=== PATIENT | male | born 1950 | race Caucasian/White ===

== ENCOUNTER → 2018-01-29 07:47 | Outpatient (CLI) | payer BC, MEDICARE, SELFPAY ==
[2018-01-29 09:18] LABS: Add Manual Diff / Slide Review NO; Basophils Percent Auto 0.6 % (0-2); Eosinophils Percent Auto 3.6 % (2-4); Hematocrit 41.8 % (41-53); Lymphocytes Percent Auto 25.8 % (25-40); Mean Corpuscular HGB Conc 33.4 % (30-36); Mean Corpuscular Hemoglobin 28.4 PG (26-34); Mean Corpuscular Volume 84.9 fL (80-100); Monocytes Percent Auto 7.8 % (3-14); Neutrophils Absolute Auto 4000 /uL (3000-5900); Neutrophils Percent Auto 62.2 % (50-75); Platelet Count 199 X10^3/uL (150-400); Red Blood Cell Count 4.92 X10^6/uL (4.5-5.9); Red Cell Distribution Width 13.7 % (11.6-14.8); White Blood Cell Count 6.4 X10^3/uL (4.5-11.0)
[2018-01-29 09:36] LABS: Alanine Aminotransferase 23 IU/L (21-72); Albumin 3.9 g/dL (3.5-5.0); Albumin Globulin Ratio 1.3 (1.0-2.8); Alkaline Phosphatase 49 U/L (38-126); Aspartate Aminotransferase 21 IU/L (17-59); BUN Creatinine Ratio 23.8 (6-22); Bilirubin Total 0.5 mg/dL (0.2-1.3); Blood Urea Nitrogen 19 mg/dL (9-20); Calcium 8.9 mg/dL (8.4-10.2); Carbon Dioxide 28 mmol/L (22-32); Chloride 106 mmol/L (98-107); Cholesterol 155 mg/dL (140-199); Estimated Glomerular Filt Rate > 60.0 mL/min (>60); Globulin 2.9 g/dL (1.7-4.1); Glucose 86 mg/dL (80-110); HDL Cholesterol 44 mg/dL (40-60); HEMOLYSIS 21 (0-50); LDL Cholesterol Calculated 101 mg/dL (<100); Potassium 4.2 mmol/L (3.4-5.1); Sodium 141 mmol/L (137-145); Total Protein 6.8 g/dL (6.3-8.2); Triglycerides 52 mg/dL (35-150)
== END ==
PROVIDERS: PCP Family Medicine; Visit Provider Family Medicine
DX: E78.00 Pure hypercholesterolemia, unspecified (principal)
CPT/HCPCS: 36415; 80053; 80061; 85025

== ENCOUNTER → 2018-02-05 07:49 | Outpatient (CLI) | payer BC, MEDICARE, SELFPAY ==
[2018-02-05 09:10] LABS: Add Manual Diff / Slide Review NO; Basophils Percent Auto 0.7 % (0-2); Eosinophils Percent Auto 3.2 % (2-4); Hematocrit 41.8 % (41-53); Hemoglobin 14.1 g/dL (13.5-17.5); Lymphocytes Percent Auto 25.9 % (25-40); Mean Corpuscular HGB Conc 33.6 % (30-36); Mean Corpuscular Hemoglobin 28.5 PG (26-34); Mean Corpuscular Volume 84.8 fL (80-100); Monocytes Percent Auto 9.4 % (3-14); Neutrophils Absolute Auto 4000 /uL (3000-5900); Neutrophils Percent Auto 60.8 % (50-75); Platelet Count 174 X10^3/uL (150-400); Red Blood Cell Count 4.93 X10^6/uL (4.5-5.9); Red Cell Distribution Width 13.3 % (11.6-14.8); White Blood Cell Count 6.6 X10^3/uL (4.5-11.0)
[2018-02-05 09:24] LABS: Alanine Aminotransferase 25 IU/L (21-72); Albumin Globulin Ratio 1.4 (1.0-2.8); Alkaline Phosphatase 55 U/L (38-126); Aspartate Aminotransferase 22 IU/L (17-59); Bilirubin Total 0.5 mg/dL (0.2-1.3); Blood Urea Nitrogen 16 mg/dL (9-20); Calcium 9.4 mg/dL (8.4-10.2); Carbon Dioxide 31 mmol/L (22-32); Chloride 101 mmol/L (98-107); Cholesterol 165 mg/dL (140-199); Estimated Glomerular Filt Rate > 60.0 mL/min (>60); Globulin 2.8 g/dL (1.7-4.1); Glucose 86 mg/dL (80-110); HDL Cholesterol 55 mg/dL (40-60); HEMOLYSIS < 15 (0-50); LDL Cholesterol Calculated 100 mg/dL (<100); Potassium 4.7 mmol/L (3.4-5.1); Total Protein 6.8 g/dL (6.3-8.2); Triglycerides 52 mg/dL (35-150)
[2018-02-07 10:46] LABS: Sodium 140 mmol/L (137-145)
== END ==
PROVIDERS: PCP Family Medicine; Visit Provider Family Medicine
DX: E78.00 Pure hypercholesterolemia, unspecified (principal); R97.20 Elevated prostate specific antigen [PSA]; R68.82 Decreased libido
CPT/HCPCS: 36415; 80053; 80061; 84153; 84403; 85025

== ENCOUNTER → 2019-11-03 07:10 | Outpatient (CLI) | payer MEDICARE, SELFPAY ==
[2019-11-03 08:42] LABS: BUN Creatinine Ratio 22.6 (6-22); Blood Urea Nitrogen 21 mg/dL (9-20); Calcium 9.4 mg/dL (8.4-10.2); Carbon Dioxide 28 mmol/L (22-32); Chloride 105 mmol/L (98-107); Estimated Glomerular Filt Rate > 60.0 mL/min (>60); Glucose 94 mg/dL (80-110); HEMOLYSIS < 15 (0-50); Potassium 4.5 mmol/L (3.4-5.1); Sodium 140 mmol/L (137-145)
[2019-11-03 09:11] LABS: Prostate Specific Antigen Scrn 4.27 ng/mL (0.1-4.0)
== END ==
PROVIDERS: PCP Student in an Organized Health Care Education/Training Program; Referring Provider Student in an Organized Health Care Education/Training Program; Visit Provider Student in an Organized Health Care Education/Training Program
DX: Z12.5 Encounter for screening for malignant neoplasm of prostate (principal); Z79.1 Long term (current) use of non-steroidal anti-inflammatories (NSAID)
CPT/HCPCS: 36415; 80048; G0103

== ENCOUNTER → 2021-06-11 07:24 | Outpatient (CLI) | payer MEDICARE, SELFPAY ==
[2021-06-11 09:10] LABS: BUN Creatinine Ratio 24.7 (6-22); Blood Urea Nitrogen 20 mg/dL (9-20); Calcium 9.1 mg/dL (8.4-10.2); Carbon Dioxide 30 mmol/L (22-32); Chloride 104 mmol/L (98-107); Cholesterol 187 mg/dL (140-199); Estimated Glomerular Filt Rate > 60.0 mL/min (>60); Glucose 89 mg/dL (80-110); HDL Cholesterol 45 mg/dL (40-60); HEMOLYSIS < 15 (0-50); LDL Cholesterol Calculated 128 mg/dL (<100); Potassium 4.5 mmol/L (3.4-5.1); Sodium 139 mmol/L (137-145); Triglycerides 70 mg/dL (35-150)
[2021-06-11 09:40] LABS: Prostate Specific Antigen 4.11 ng/mL (0.10-4.00)
[2021-06-11 13:00] LABS: COVID19 -Nasal RAPID Negative (Negative)
== END ==
PROVIDERS: Surgery; PCP Student in an Organized Health Care Education/Training Program; Referring Provider Student in an Organized Health Care Education/Training Program; Visit Provider Student in an Organized Health Care Education/Training Program
DX: E78.00 Pure hypercholesterolemia, unspecified (principal); R97.20 Elevated prostate specific antigen [PSA]; S32.009A Unspecified fracture of unspecified lumbar vertebra, initial encounter for closed fracture; Z01.812 Encounter for preprocedural laboratory examination; Z20.822 Contact with and (suspected) exposure to COVID-19
CPT/HCPCS: 36415; 80048; 80061; 84153; 87635; C9803

== ENCOUNTER 2021-06-12 08:27 | Day surgery (SDC) | payer MEDICARE, SELFPAY ==
[2021-06-12 08:45] VITALS: BP 131/74; PULSE 81; RESP 16; TEMP 36.4; O2SAT 98; BMI 27.3
[2021-06-12] MEDS: LACTATED RINGERS 1,000 ML 42 ML IV (09:09)
--- NOTE | 2021-06-12 09:33 | PM.HP.1 ---
History of Present Illness History of Present Illness Date Patient Seen: 06/12/21 Time Patient Seen: 09:33 Chief complaint: SCREENING COLONOSCOPY Narrative: Jaxon is a 70-year-old man who is due for a screening colonoscopy. He he has had a colonoscopy in the past he thinks it was at least 10 years ago. He reports that he is otherwise healthy. Patient History Medical History (Updated 06/12/21 @ 09:34 by Robert Viera MD) BPH (benign prostatic hyperplasia) Carpal tunnel syndrome Chronic low back pain Closed fracture of lumbar vertebra (10/18/15) Colon polyps Elevated PSA Heart murmur (06/29/16) Hx of fracture (2008) Hyperlipemia Hypertension Pure hypercholesterolemia (10/18/15) Surgical History Hx of hernia repair Family & Social History Family History Brother Prostate cancer Father No problems noted. Mother No problems noted. Social History: household members spouse Tobacco & Substance use: Smoking Status Never smoker alcohol intake never Substance Use Type does not use Meds Home Medications and Allergies Home Medications Medication Instructions Recorded Confirmed Type ketoconazole 2 %-hydrocortisone 1 applictn TOP BID #30 gram 09/01/19 06/12/21 Rx 2.5 % topical cream atorvastatin 40 mg tablet 40 mg PO BEDTIME #90 tab 05/08/21 06/12/21 Rx aspirin 81 mg PO DAILY 06/12/21 06/12/21 History Allergies Allergy/AdvReac Type Severity Reaction Status Date / Time No Known Drug Allergies Allergy Verified 06/12/21 08:05 Exam Vital Signs (past 8 hours): - 06/12/21 08:45 Temperature 97.6 F Pulse Rate 81 Respiratory Rate 16 Blood Pressure 131/74 Pulse Oximetry 98 Oxygen Delivery Method Room Air Const General: healthy appearing and comfortable Eyes General: appearance normal, both eyes and all related structures Resp Effort & Inspection: normal respiratory effort Assessment & Plan Assessment and plan (1) Colon cancer screening: Status: Acute Plan We reviewed the risks benefits of colonoscopy. He would like to proceed. Time Spent With Patient Critical Care time: I spent a total of [] minutes of critical care time on this patient's care today; this time is exclusive of procedural time.
--- NOTE | 2021-06-12 09:39 | PM.PREOP ---
Pre-operative Note COVID-19 COVID-19 status: Negative Result date/Date tested (Pos, Neg/Pending): 06/11/21 Interval Note History & Physical reviewed/Exam performed by Physician: Yes Changes to H&P: No ASA Class (for procedural sedation): II
[2021-06-12] MEDS: MIDAZOLAM 5 MG/5 ML VIAL IV (09:59)
[2021-06-12] MEDS: fentaNYL 250 MCG/5 ML INJ IV (10:05)
--- NOTE | 2021-06-12 10:28 | PM.OP.COLON ---
Operative Date/Time/Diagnoses Date of procedure: 06/12/21 Time of procedure: 10:29 Pre-op diagnosis: Colon cancer screening Post-op diagnosis: same Procedure & Clinicians Study performed: Colonoscopy Same procedure as scheduled: Yes Indications: Colon cancer screening Surgeon: Robert Viera Procedure Notes SCOAP/Timeout: Yes Procedure in detail: Procedure: The patient was brought to the endoscopy suite, placed in left lateral decubitus position. The patient was connected to monitoring devices. A time-out was performed. Sedation was administered. Once the patient was adequately sedated, a digital rectal exam was performed. There was a moderately enlarged prostate. The scope was then inserted and advanced to the cecum where the appendiceal orifice was identified and photographed. The scope was then slowly withdrawn over greater than 6 minutes. Mucosa was thoroughly inspected. There were some scattered diverticula in the sigmoid colon. No polyps were found. The scope was retroflexed in the rectum. No abnormalities noted. The scope was straightened and removed. The patient was awakened and brought to recovery. Versed: 7 mg Fentanyl: 150 mcg EBL: 0 Findings: Scattered sigmoid diverticulosis Scope withdrawal time: 18 Sedation minutes: 47 Findings: divertiulosis Post-procedure Recommendations: Colonoscopy in 10 years and High fiber diet
[2021-06-12 10:30] VITALS: BP 109/56; PULSE 72; RESP 10; TEMP 36.2; O2SAT 98
[2021-06-12 10:35] VITALS: BP 115/60; PULSE 57; RESP 12; O2SAT 98
[2021-06-12 10:40] VITALS: BP 100/65; PULSE 71; RESP 16; O2SAT 99
[2021-06-12 10:45] VITALS: BP 107/63; PULSE 71; RESP 16; O2SAT 98
[2021-06-12 10:50] VITALS: BP 115/70; PULSE 59; RESP 16; TEMP 36.6; O2SAT 97
== END 2021-06-12 11:35 | disposition home or self-care (01) ==
PROVIDERS: PCP Student in an Organized Health Care Education/Training Program; Referring Provider Surgery; Visit Provider Surgery
PROC: 0DJD8ZZ Inspection of Lower Intestinal Tract, Via Natural or Artificial Opening Endoscopic (ICD-10-PCS; CPT 45378; principal; 2021-06-12 09:15)
DX: Z12.11 Encounter for screening for malignant neoplasm of colon (principal); K57.30 Diverticulosis of large intestine without perforation or abscess without bleeding; I10 Essential (primary) hypertension; E78.5 Hyperlipidemia, unspecified; E78.00 Pure hypercholesterolemia, unspecified
CPT/HCPCS: G0121; 93005; 99152; 99153; J2250; J3010

== ENCOUNTER → 2021-06-19 10:17 | Outpatient (CLI) | payer MEDICARE, SELFPAY ==
[2021-06-19 10:57] LABS: Add Manual Diff / Slide Review NO; Basophils Absolute Auto 0 /uL (0-100); Basophils Percent Auto 0.6 % (0-2); Eosinophils Absolute Auto 100 /uL (0-450); Eosinophils Percent Auto 2.1 % (2-4); Hematocrit 43.4 % (41-53); Hemoglobin 14.5 g/dL (13.5-17.5); Lymphocytes Absolute Auto 1500 /uL (1100-4500); Lymphocytes Percent Auto 24.7 % (25-40); Mean Corpuscular HGB Conc 33.4 % (30-36); Mean Corpuscular Hemoglobin 28.6 PG (26-34); Mean Corpuscular Volume 85.7 fL (80-100); Monocytes Absolute Auto 500 /uL (0-900); Monocytes Percent Auto 8.4 % (3-14); Neutrophils Absolute Auto 3900 /uL (1500-7000); Neutrophils Percent Auto 64.2 % (50-75); Platelet Count 199 X10^3/uL (150-400); Red Blood Cell Count 5.07 X10^6/uL (4.5-5.9); Red Cell Distribution Width 13.5 % (11.6-14.8); White Blood Cell Count 6.1 X10^3/uL (4.5-11.0)
[2021-06-19 11:21] LABS: Vitamin D 25 Hydroxy (D3) 40.6 ng/mL (30.0-100.0)
[2021-06-19 11:34] LABS: TSH w/ Reflex to FT4 2.22 uIU/mL (0.47-4.68)
[2021-06-19 12:00] LABS: Vitamin B12 496 pg/mL (239-931)
== END ==
PROVIDERS: PCP Student in an Organized Health Care Education/Training Program; Referring Provider Student in an Organized Health Care Education/Training Program; Visit Provider Student in an Organized Health Care Education/Training Program
DX: R41.3 Other amnesia (principal)
CPT/HCPCS: 36415; 82306; 82607; 84443; 85025

== ENCOUNTER 2021-09-17 10:30 | Outpatient (RCR) | payer MEDICARE, SELFPAY ==
--- NOTE | 2021-09-04 16:41 | ST.OPIE ---
Visit Care Team Role Provider Type Jaxon Mcknight MD Attending Provider Physician Family Provider Primary Care Provider Referring Provider Specialty: Internal Medicine Address: [address] [place] [address], [address], [address] Email: [email or web address] Speech-Language Pathology Initial Evaluation MANAGER SPECIAL EVENTS Adult Cognitive Linguistic Eval Start: 09/04/21 12:43 Freq: Status: Active Protocol: Document 08/29/21 12:44 LNK (Rec: 09/04/21 13:32 LNK [id number]) Adult Cognitive Linguistic Evaluation Session Time Visit Start Time 13:30 Visit Stop Time 14:30 Total Visit Minutes 60 Visit Information Visit Number 1 Plan of Care Dates 08/29/21-11/26/21 Setting Assessment Location Outpatient Care Visit Type Note Type Initial evaluation Next Note Type Next Note Type Treatment Note Patient Information Identification Type Name,Date of Medical History pt was seen for cognition assessment at the referral Dr. Arenas. Pt reported that he was a heavy drinker and had quit drinking 10 years ago. Review of records indicated a history of head injury when he was in his 20s. Pt described a gradual onset of frustrating difficulty remembering details of his day. Symptoms became noticeable about 4-6 months ago with no clear inciting event, environmental change, life stresses, or coincident medical problem. Pt reported difficulty recalling /tracking details of active tasks or recalling locations of objects. His reported that she has noticed pt not remembering appointments, where his phone/keys are and what chore he was working on. His also noted that in the evenings, pt is easy to get angry and has a short temper. Pt's and their kids have become concerned about pt's memory. 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 Assessment Oral Motor Examination Completed No: Observation indicated structures and function to be WNL Informal Assessment Receptive Language Normal Yes: as observed during assessment Receptive Language Impairment(s) Following 3-step commands Expressive Language Normal Yes: as observed during assessment Speech Normal as observed during assessment Formal Assessment Standardized Test/Screener Type Cognitive Linguistic Quick Test (CLQT) Results Pt scored a 16/30 on the SLUMS demonstrating challenges with memory, mental math and executive functioning. The CLQT (Cognitive Linguistic Quick Test) was then administered. The CLQT is an assessment tool that measures performance across 5 cognitive domains: Attention, Memory, Executive Functions, Language, Visuospatial Skills and a Clock Drawing. Ten domain subtests collectively contribute to determine a pt's Domain and Composite Rating. The overall composite ratings indicated the pt's Visuospatial Skills are WNL. For the following domains, the pt's results indicated mild cognitive decline: Attention, Executive Functions, Language and Clock drawing. With the Memory domain, the pt scored in the Moderate Cognitive decline range. These results support the information provided by the pt and his . With respect the the individual subtests, the patient scored below criteria on the following: Clock Drawing, Story Retell, Design Memory and Design Generation. Findings/Results Language Function Mildly impaired Cognitive Function Mild-moderately impaired Findings The pt presented with mild- moderate cognitive decline. Pt presents with moderate decline in memory skills with mild decline in attention/ focus, excecutive functions, language and the clock drawing . The subtests below criteria, contributing to the overall results were examined. The skills that are a difficult for the pt are memory (short term, working memory), sequencing, logic conclusion, mental flexibility,and encoding non-linguistic information (executive functions). The impact of the decline in these skills and daily functioning is significantly. Recommend referral to neurologist for further assessment. Cognitive therapy is recommended with MANAGER SPECIAL EVENTS. Cognitive Communication Deficits Self-awareness of Cognitive- Situational awareness ( Communication Deficits recognition of problem in context;in real time) Impact on Functioning Activity Limits/Particip.Rest. Mod: General Tasks and Demands Household Tasks Interpersonal Interactions Safety Risks Mild: Being Left Alone at Home Mod: Reacting to Emergency Managing Medication Prognosis Prognosis Good Based on Family support,Time since onset Plan of Care Speech-Language Treatment Yes Frequency weekly or every other week Patient/Caregiver Education Described results of evaluation,Patient expressed understanding of evaluation, Patient expressed agreement with goals and treatment plans ,Family/caregivers expressed understanding of evaluation, Family/caregivers expressed agreement with goals and treatment plan Short Term Goals Pt will be referred for neurological evaluation 1) Pt and family will set up Information Central,locating the primary place for all important information (i.e., appointments, special events, phone numbers, emergency contacts, etc.) the use of a large white board and labeld placec for phones, keys, etc. 2) Pt will report white board set up and use of reminders to go to the board for information 3) Pt will report implementing Go, Plan, Do worksheets for defining a goal/task and organizing the supplies and steps to completion. This will help reduce incomplete projects. Penitentiary Goals Pt will independently implement strategies and white board in order to aid in completing ADLS, per pt report .
--- NOTE | 2021-09-04 16:43 | ST.OPPOC ---
Addendum entered and electronically signed by Jaxon Mcknight MD 09/17/21 08:24: I have reviewed this Plan of Care and certify that the skilled therapy services above are required to meet the patient?s needs. Original Note: Addendum entered and electronically signed by Aftab Tarango 09/17/21 12:55: Sending to Dr. Mcknight Original Note: Physical, Occupational & Speech Therapy At [facility] Visit Care Team Role Provider Type Jaxon Mcknight MD Attending Provider Physician Family Provider Primary Care Provider Referring Provider Address: [address] [place] [address], [address], [address] Speech Pathology Plan of Care Plan of Care Dates 08/29/21-11/26/21 Language Function Mildly impaired Cognitive Function Mild-moderately impaired Findings The pt presented with mild-moderate cognitive decline. Pt presents with moderate decline in memory skills with mild decline in attention/ focus, excecutive functions, language and the clock drawing. The subtests below criteria, contributing to the overall results were examined. The skills that are a difficult for the pt are memory (short term, working memory), sequencing, logic conclusion, mental flexibility ,and encoding non-linguistic information ( executive functions). The impact of the decline in these skills and daily functioning is significantly. Recommend referral to neurologist for further assessment. Cognitive therapy is recommended with COMMUNITY MARKETING COORDINATOR. Short Term Goals Pt will be referred for neurological evaluation 1) Pt and family will set up Information Central,locating the primary place for all important information (i.e., appointments, special events, phone numbers, emergency contacts, etc.) the use of a large white board and labeled places for phones, keys, etc. 2) Pt will report white board set up and use of reminders to go to the board for information 3) Pt will report implementing Go, Plan, Do worksheets for defining a goal/task and organizing the supplies and steps to completion. This will help reduce incomplete projects. Assisted Goals Pt will independently implement strategies and white board in order to aid in completing ADLS, per pt report. Electronically Signed by: BRIANA Tarango 09/04/21 1643 Please Sign and Return: I have reviewed this Plan of Care and certify that the skilled therapy services above are required to meet the patient?s needs. Physician Signature Date Printed Name and Credentials Clinical Instructor Signature Printed Name and Credentials
--- NOTE | 2021-09-04 16:58 | ST.OPTN ---
Visit Care Team Role Provider Type Jaxon Mcknight MD Attending Provider Physician Family Provider Primary Care Provider Referring Provider Address: [address] [place] [address], [address], [place], [address] OPERATIONS ARCHITECT Treatment Note OPERATIONS ARCHITECT Treatment Note Start: 09/04/21 12:43 Freq: Status: Active Protocol: Document 09/04/21 16:47 LNK (Rec: 09/04/21 16:58 LNK [id number]) Speech Pathology Treatment Note Session Time Visit Start Time 14:30 Visit Stop Time 15:30 Total Visit Minutes 60 Visit Information Plan of Care Dates 06/28/22/-09/26/21 Setting Treatment Setting Outpatient Care Visit Type Note Type Treatment Note Next Note Type Next Note Type Treatment Note General Information General Information pt was seen for cognition assessment at the referral Dr. Arenas. Pt reported that he was a heavy drinker and had quit drinking 10 years ago. Review of records indicated a history of head injury when he was in his 20s. Pt described a gradual onset of frustrating difficulty remembering details of his day. Symptoms became noticeable about 4-6 months ago with no clear inciting event, environmental change, life stresses, or coincident medical problem. Pt reported difficulty recalling /tracking details of active tasks or recalling locations of objects. His reported that she has noticed pt not remembering appointments, where his phone/keys are and what chore he was working on. His also noted that in the evenings, pt is easy to get angry and has a short temper. Pt's and their kids have become concerned about pt's memory. Subjective Identification Type Name,Date of Others Present Family Chief Complaint(s) Cognitive Rehab Expectation/Goals: Patient Goals To carry out everyday ADLs using cognitive strategies to maintain skills Patient Knowledge/Awareness of OPERATIONS ARCHITECT Role Excellent in Treatment Objective Short Term Goals Pt will be referred for neurological evaluation 1) Pt and family will set up Information Central,locating the primary place for all important information (i.e., appointments, special events, phone numbers, emergency contacts, etc.) the use of a large white board and labeld placec for phones, keys, etc. 2) Pt will report white board set up and use of reminders to go to the board for information 3) Pt will report implementing Go, Plan, Do worksheets for defining a goal/task and organizing the supplies and steps to completion. This will help reduce incomplete projects. Detention Goals Pt will independently implement strategies and white board in order to aid in completing ADLS, per pt report . Treatment Activities Reviewed the results of the CLQT with detailed explanation of the results. Pt and were concerned and asked excellent questions. All questions answered to their satisfaction. Described recommendations. Introduce 2 strategies: Information Central and white board implementation. Described a place for everything and everything in its place. Labels, lists, phone assistance discussed with pt and . Recommended they start or restart using games, word puzzles, jig saw puzzles to exercise the brain. Pt an were enthusiastic and happy to have assignments to start. Assessment Patient Response to Treatment Excellent Rehab Potential Good Impairments Identified ADLs,Cognitive-Linguistic Skills,Memory - Short Term, Memory - Working,Problem Solving Reviewed with Patient Goals,Progress Being Made,Home Exercise Program Patient/Caregiver Understanding Excellent Plan Amount of Therapy Recommended 12 Months Frequency of Treatment Once a Week Length of Session 60 Minutes Therapeutic Contents Cognitive-Linguistic Training Provided Patient/Caregiver Instruction Home Exercise Program,Plan of Care,Questions/Concerns Suggested Referral Neurology
--- NOTE | 2021-09-23 17:14 | ST.OPTN ---
Visit Care Team Role Provider Type Jaxon Mcknight MD Attending Provider Physician Family Provider Primary Care Provider Referring Provider Address: [address] [place] [address], [address], [place], [address] HEALTH CARE SOCIAL WORKER Treatment Note HEALTH CARE SOCIAL WORKER Treatment Note Start: 09/04/21 12:43 Freq: Status: Active Protocol: Document 09/17/21 17:07 LNK (Rec: 09/23/21 17:14 LNK [id number]) Speech Pathology Treatment Note Session Time Visit Start Time 11:30 Visit Stop Time 12:30 Total Visit Minutes 60 Visit Information Visit Number 3 Plan of Care Dates 06/28/22/-09/26/21 Setting Treatment Setting Outpatient Care Visit Type Note Type Treatment Note Next Note Type Next Note Type Treatment Note General Information General Information pt was seen for cognition assessment at the referral Dr. Arenas. Pt reported that he was a heavy drinker and had quit drinking 10 years ago. Review of records indicated a history of head injury when he was in his 20s. Pt described a gradual onset of frustrating difficulty remembering details of his day. Symptoms became noticeable about 4-6 months ago with no clear inciting event, environmental change, life stressor, or coincident medical problem. Pt reported difficulty recalling /tracking details of active tasks or recalling locations of objects. His reported that she has noticed pt not remembering appointments, where his phone/keys are and what chore he was working on. His also noted that in the evenings, pt is easy to get angry and has a short temper. Pt's and their kids have become concerned about pt's memory. Subjective Identification Type Name,Date of Others Present Family Chief Complaint(s) Cognitive Rehab Expectation/Goals: Patient Goals To carry out everyday ADLs using cognitive strategies to maintain skills Patient Knowledge/Awareness of HEALTH CARE SOCIAL WORKER Role Excellent in Treatment Objective Short Term Goals Pt will be referred for neurological evaluation 1) Pt and family will set up Information Central,locating the primary place for all important information (i.e., appointments, special events, phone numbers, emergency contacts, etc.) the use of a large white board and labeld placec for phones, keys, etc. 2) Pt will report white board set up and use of reminders to go to the board for information 3) Pt will report implementing Go, Plan, Do worksheets for defining a goal/task and organizing the supplies and steps to completion. This will help reduce incomplete projects. Prison Goals Pt will independently implement strategies and white board in order to aid in completing ADLS, per pt report . Treatment Activities Pt''s reported tht they have set up Information Central and white board for appointments, daily chores list and phone numbers. His noted that she needs to purchase a bigger white board. They both reported that the information central is working well and they are using it frequently. Fewer losses of keys, phones, etc. Reinforced a place for everything and everything in its place. Labels, lists, phone assistance have also been started, per . Discussed with pt and . Using games , word puzzles, jig saw puzzles to exercise the brain continues to be discussed. Pt reported that he has difficulty being told what to do and he has been resisting coming to therapy. Pt and are anxious for their Dr. to refer to a neurologist for assessment, to find out what is diagnosis. Assessment Patient Response to Treatment Excellent Rehab Potential Good Impairments Identified ADLs,Cognitive-Linguistic Skills,Memory - Short Term, Memory - Working,Problem Solving Reviewed with Patient Goals,Progress Being Made,Home Exercise Program Patient/Caregiver Understanding Excellent Plan Amount of Therapy Recommended 12 Months Frequency of Treatment Once a Week Length of Session 60 Minutes Therapeutic Contents Cognitive-Linguistic Training Provided Patient/Caregiver Instruction Home Exercise Program,Plan of Care,Questions/Concerns Suggested Referral Neurology
--- NOTE | 2021-10-17 12:29 | ST.OPDS ---
Visit Care Team Role Provider Type Jaxon Mcknight MD Attending Provider Physician Family Provider Primary Care Provider Referring Provider Address: [address] [place] [address], [address], [place], [address] BEDSPREAD CUTTER Treatment Note BEDSPREAD CUTTER Treatment Note Start: 09/04/21 12:43 Freq: Status: Active Protocol: Document 10/17/21 12:16 LNK (Rec: 10/17/21 12:28 LNK [id number]) Speech Pathology Treatment Note Setting Treatment Setting Outpatient Care Visit Type Note Type Discharge Summary General Information Patient History pt was ssen for cognition assessment at the referral Dr. Arenas. Pt reprted that he was a heavy drinker and had quit drinking 10 years ago. Review of records indicated a history of head injury when he was in his 20s. Pt described a gradual onset of frustrating difficulty remembering details of his day. Symptoms became noticeable about 4-6 months ago with no clear inciting event, environmental change, life stressor, or coincident medical problem. Pt reported difficulty recalling /tracking details of active tasks or recalling locations of objects. His reported that she has noticed pt not remembering appointments, where his phone/keys are and what chore he was working on. His also noted that in the evenings, pt is easy to get angry and has a short temper. Pt's and their kids have become concerned about pt's memory. Subjective Chief Complaint(s) Cognitive Parent/Caretake Knowledge/Awareness of Excellent BEDSPREAD CUTTER Role in Treatment Objective Short Term Goals Pt will be referred for neurological evaluation 1) Pt and family will set up Information Central,locating the primary place for all important information (i.e., appointments, special events, phone numbers, emergency contacts, etc.) the use of a large white board and labeled place for phones, keys, etc. 2) Pt will report white board set up and use of reminders to go to the board for information 3) Pt will report implementing Go, Plan, Do worksheets for defining a goal/task and organizing the supplies and steps to completion. This will help reduce incomplete projects. Assessment Assessment of Improvement Pt's reported tht they have set up Information Central and white board for appointments, daily chores list and phone numbers. Pt has been refusing to go to therapy sessions and does not see a need. His suggested that they wait until the neurologist's evaluation and decide then if therapy is something to pursue Plan Amount of Therapy Recommended No Further Therapy Frequency of Treatment No Further Therapy Therapy Recommendations Discharge from Speech Therapy
== END 2021-10-20 14:11 ==
LOC: SP 10:30
PROVIDERS: Family Provider Student in an Organized Health Care Education/Training Program; PCP Student in an Organized Health Care Education/Training Program; Referring Provider Student in an Organized Health Care Education/Training Program; Visit Provider Student in an Organized Health Care Education/Training Program
DX: R41.3 Other amnesia (principal)
CPT/HCPCS: 96125; 97129; 97130

== ENCOUNTER → 2022-02-23 07:47 | Outpatient (CLI) | payer MEDICARE, SELFPAY ==
--- NOTE | 2022-02-23 | DI.MRI.S_ITS ---
PROCEDURE: MR HEAD/BRAIN WO/W CON INDICATIONS: Unspecified dementia wo behavioral disturbance TECHNIQUE: Noncontrast axial T1 spin echo, axial T2 fast spin echo, sagittal and axial FLAIR, coronal T2 fast spin echo, axial gradient echo, axial diffusion and ADC through the brain. After the administration of contrast, axial and coronal and sagittal T1 spin echo with fat saturation through the brain. COMPARISON: None. FINDINGS: Image quality: Excellent. CSF spaces: Basal cisterns are patent. No extra-axial fluid collections. Ventricles are normal in size and shape. Brain: No midline shift. No intracranial bleeds or masses. No abnormal intracranial enhancement. There is cerebral volume loss for age. There is periventricular white matter chronic small vessel ischemic change. The brainstem appears normal. Diffusion-weighted images demonstrate no acute ischemic insults. No chronic ischemic insults. Normal intravascular flow voids are present. Skull and face: Calvarial marrow is normal in signal. Orbits appear normal. Sinuses: Sinuses and mastoids appear clear. IMPRESSION: 1. Volume loss and small vessel ischemic disease. 2. No acute process. No recent infarct. Dictated by: Ángel Alford M.D. on 02/23/2022 at 9:22 Approved by: Ángel Alford M.D. on 02/23/2022 at 9:23
[2022-02-23 09:46] LABS: Add Manual Diff / Slide Review NO; Basophils Absolute Auto 0 /uL (0-100); Basophils Percent Auto 0.8 % (0-2); Eosinophils Absolute Auto 100 /uL (0-450); Eosinophils Percent Auto 2.4 % (2-4); Hematocrit 39.7 % (41-53); Hemoglobin 13.7 g/dL (13.5-17.5); Lymphocytes Absolute Auto 1200 /uL (1100-4500); Lymphocytes Percent Auto 20.3 % (25-40); Mean Corpuscular HGB Conc 34.4 % (30-36); Mean Corpuscular Hemoglobin 29.1 PG (26-34); Mean Corpuscular Volume 84.5 fL (80-100); Monocytes Absolute Auto 500 /uL (0-900); Monocytes Percent Auto 8.9 % (3-14); Neutrophils Absolute Auto 3900 /uL (1500-7000); Neutrophils Percent Auto 67.6 % (50-75); Platelet Count 180 X10^3/uL (150-400); Red Blood Cell Count 4.71 X10^6/uL (4.5-5.9); Red Cell Distribution Width 13.4 % (11.6-14.8); White Blood Cell Count 5.8 X10^3/uL (4.5-11.0)
[2022-02-23 10:10] LABS: Alanine Aminotransferase 14 IU/L (<50); Albumin 3.7 g/dL (3.5-5.0); Albumin Globulin Ratio 1.2 (1.0-2.8); Alkaline Phosphatase 67 U/L (38-126); Aspartate Aminotransferase 23 IU/L (17-59); Bilirubin Total 0.3 mg/dL (0.2-1.3); Blood Urea Nitrogen 17 mg/dL (9-20); Calcium 8.6 mg/dL (8.4-10.2); Carbon Dioxide 30 mmol/L (22-32); Chloride 104 mmol/L (98-107); Estimated Glomerular Filt Rate > 60 mL/min (>60); Glucose 87 mg/dL (80-110); HEMOLYSIS < 15 (0-50); Potassium 4.3 mmol/L (3.4-5.1); Sodium 139 mmol/L (137-145); Total Protein 6.7 g/dL (6.3-8.2)
== END ==
PROVIDERS: Family Provider Student in an Organized Health Care Education/Training Program; PCP Student in an Organized Health Care Education/Training Program; Referring Provider Psychiatry & Neurology Neurology; Visit Provider Psychiatry & Neurology Neurology
DX: F03.90 Unspecified dementia, unspecified severity, without behavioral disturbance, psychotic disturbance, mood disturbance, and anxiety (principal); Z51.81 Encounter for therapeutic drug level monitoring
CPT/HCPCS: 36415; 70553; 80053; 85025

== ENCOUNTER → 2023-01-22 08:17 | Outpatient (CLI) | payer MEDICARE, SELFPAY ==
[2023-01-22 09:45] LABS: Add Manual Diff / Slide Review NO; Basophils Absolute Auto 0 /uL (0-100); Basophils Percent Auto 0.5 % (0-2); Eosinophils Absolute Auto 200 /uL (0-450); Eosinophils Percent Auto 3.1 % (2-4); Hematocrit 43.1 % (41-53); Hemoglobin 14.4 g/dL (13.5-17.5); Lymphocytes Absolute Auto 2400 /uL (1100-4500); Mean Corpuscular HGB Conc 33.3 % (30-36); Mean Corpuscular Hemoglobin 28.1 PG (26-34); Mean Corpuscular Volume 84.4 fL (80-100); Monocytes Absolute Auto 700 /uL (0-900); Monocytes Percent Auto 10.4 % (3-14); Neutrophils Absolute Auto 3200 /uL (1500-7000); Platelet Count 176 X10^3/uL (150-400); Red Cell Distribution Width 13.6 % (11.6-14.8); White Blood Cell Count 6.5 X10^3/uL (4.5-11.0)
[2023-01-22 10:15] LABS: Alanine Aminotransferase 32 IU/L (<50); Albumin 4.1 g/dL (3.5-5.0); Albumin Globulin Ratio 1.3 (1.0-2.8); Alkaline Phosphatase 86 U/L (38-126); Aspartate Aminotransferase 34 IU/L (17-59); BUN Creatinine Ratio 14.8 (6-22); Bilirubin Total 0.5 mg/dL (0.2-1.3); Blood Urea Nitrogen 12 mg/dL (9-20); Calcium 8.9 mg/dL (8.4-10.2); Carbon Dioxide 32 mmol/L (22-32); Chloride 102 mmol/L (98-107); Cholesterol 169 mg/dL (140-199); Estimated Glomerular Filt Rate > 60 mL/min (>60); Globulin 3.2 g/dL (1.7-4.1); Glucose 83 mg/dL (80-110); HDL Cholesterol 34 mg/dL (40-60); HEMOLYSIS < 15 (0-50); LDL Cholesterol Calculated 113 mg/dL (<100); Potassium 4.2 mmol/L (3.4-5.1); Sodium 139 mmol/L (137-145); Total Protein 7.3 g/dL (6.3-8.2); Triglycerides 109 mg/dL (35-150)
[2023-01-22 10:47] LABS: TSH w/ Reflex to FT4 2.87 uIU/mL (0.47-4.68)
[2023-01-23 09:30] LABS: PSA Free % 25.3 % (.)
== END ==
PROVIDERS: Family Provider Student in an Organized Health Care Education/Training Program; PCP Student in an Organized Health Care Education/Training Program; Referring Provider Pediatrics; Visit Provider Pediatrics
DX: E78.00 Pure hypercholesterolemia, unspecified (principal); F02.80 Dementia in other diseases classified elsewhere, unspecified severity, without behavioral disturbance, psychotic disturbance, mood disturbance, and anxiety; G30.9 Alzheimer's disease, unspecified; N40.0 Benign prostatic hyperplasia without lower urinary tract symptoms; R97.20 Elevated prostate specific antigen [PSA]
CPT/HCPCS: 36415; 80053; 80061; 84153; 84154; 84443; 85025

== ENCOUNTER → 2024-05-20 14:24 | Outpatient (CLI) | payer MEDICARE, SELFPAY ==
--- NOTE | 2024-05-20 14:26 | DI.MRI.S_ITS ---
PROCEDURE: MR PELVIC PROSTATE PROTOCOL INDICATIONS: Elevated PSA/family history prostate cancer TECHNIQUE: Coronal HASTE, axial T1 FSE with fat saturation, 3-plane nonbreath-hold T2 FSE. After the administration of contrast, dynamic axial, delayed axial and coronal VIBE or 2-D FLASH with fat saturation through the pelvis. Diffusion weighted imaging and ADC was performed. COMPARISON: None. FINDINGS: Image quality: Diffusion weighted and dynamic contrast enhanced images are diagnostic. Prostate: 4.8 x 5.6 x 6.2 cm. Estimated volume is 87 cc. Provided PSA of 7. PSA density is estimated to be 0.0805 Transitional zone heterogenous nodules are present, either well encapsulated or mostly encapsulated, compatible with PI-RADS 1 or 2 likely BPH nodules. The seminal vesicles appear moderately atrophic, but without invasive malignancy. No definite extracapsular disease. In the right apex transitional zone, there is a 1 x 0.8 x 1 cm lesion (4/18, 5/10). DWI score 4. T2 score 3. DCE positive. PI-RADS 3. Genitourinary system: Trabeculated bladder is usually from chronic obstruction. Bowel and peritoneum: No pathologic ascites or small bowel obstruction Nodes and vessels: No aneurysmal vessel identified. No pathologic lymph nodes by size criteria. Soft tissues: Pelvic wall appears unremarkable Bones: There are degenerative changes. No suspicious osseous enhancement. Possible bilateral hip synovitis and mild effusions. IMPRESSION: PI-RADS 3 lesion in the right apex transitional zone. The predominant finding is prostatomegaly and BPH. Other findings as above. Dictated by: Pilo Wang M.D. on 05/22/2024 at 9:19 Approved by: Pilo Wang M.D. on 05/22/2024 at 9:26
== END ==
PROVIDERS: Family Provider Student in an Organized Health Care Education/Training Program; PCP Family Medicine; Referring Provider Urology; Visit Provider Urology
DX: N40.0 Benign prostatic hyperplasia without lower urinary tract symptoms (principal); N32.89 Other specified disorders of bladder; R97.20 Elevated prostate specific antigen [PSA]; Z80.42 Family history of malignant neoplasm of prostate
CPT/HCPCS: 72197; A9579

== ENCOUNTER → 2024-06-23 10:59 | Outpatient (CLI) | payer MEDICARE, SELFPAY ==
[2024-06-23 11:32] LABS: Hematocrit 45.2 % (41-53); Hemoglobin 15.2 g/dL (13.5-17.5); Mean Corpuscular HGB Conc 33.5 % (30-36); Mean Corpuscular Hemoglobin 28.8 PG (26-34); Platelet Count 267 X10^3/uL (150-400); Red Blood Cell Count 5.26 X10^6/uL (4.5-5.9); Red Cell Distribution Width 13.6 % (11.6-14.8); White Blood Cell Count 7.9 X10^3/uL (4.5-11.0)
[2024-06-23 11:58] LABS: Alanine Aminotransferase 20 IU/L (<50); Albumin 3.9 g/dL (3.5-5.0); Albumin Globulin Ratio 1.4 (1.0-2.8); Alkaline Phosphatase 79 U/L (38-126); Aspartate Aminotransferase 28 IU/L (17-59); Bilirubin Total 0.5 mg/dL (0.2-1.3); Blood Urea Nitrogen 12 mg/dL (9-20); Calcium 9.2 mg/dL (8.4-10.2); Carbon Dioxide 30 mmol/L (22-32); Chloride 104 mmol/L (98-107); Cholesterol 171 mg/dL (140-199); Estimated Glomerular Filt Rate > 60 mL/min (>60); Globulin 2.7 g/dL (1.7-4.1); Glucose 92 mg/dL (80-110); HDL Cholesterol 49 mg/dL (40-60); HEMOLYSIS < 15 (0-50); LDL Cholesterol Calculated 108 mg/dL (<100); Potassium 4.4 mmol/L (3.4-5.1); Sodium 138 mmol/L (137-145); Total Protein 6.6 g/dL (6.3-8.2); Triglycerides 71 mg/dL (35-150)
[2024-06-23 12:28] LABS: Prostate Specific Antigen Scrn 7.31 ng/mL (0.1-4.0)
[2024-06-24 07:39] LABS: PSA Free % 25.4 % (.); PSA, Total 7.8 ng/mL (0.0-4.0)
== END ==
PROVIDERS: Family Provider Student in an Organized Health Care Education/Training Program; PCP Family Medicine; Referring Provider Urology; Visit Provider Urology
DX: R97.20 Elevated prostate specific antigen [PSA] (principal); E78.00 Pure hypercholesterolemia, unspecified; Z12.5 Encounter for screening for malignant neoplasm of prostate; Z00.00 Encounter for general adult medical examination without abnormal findings; R63.4 Abnormal weight loss; Z80.42 Family history of malignant neoplasm of prostate
CPT/HCPCS: 36415; 80053; 80061; 84153; 84154; 85027; G0103

== ENCOUNTER 2024-07-08 20:53 | Emergency (ER) | payer MEDICARE, SELFPAY ==
[2024-07-08 20:56] VITALS: BP 118/70; PULSE 102; RESP 18; TEMP 37.6; O2SAT 95; BMI 22.7
[2024-07-08 21:48] LABS: Influenza A - CEPHEID Flu A POSITIVE (NEGATIVE); Influenza B - CEPHEID Flu B NEGATIVE (NEGATIVE); Respiratory Syncytial Virus Negative (Negative)
[2024-07-08 21:49] LABS: COVID-19 CEPHEID 4-PLEX PCR Negative (Negative)
== END 2024-07-08 23:16 | disposition left against medical advice (07) ==
PROVIDERS: Emergency Provider Emergency Medicine; Family Provider Student in an Organized Health Care Education/Training Program; PCP Family Medicine
DX: R41.0 Disorientation, unspecified (principal); Z20.828 Contact with and (suspected) exposure to other viral communicable diseases
CPT/HCPCS: 0241U; 99281

== ENCOUNTER → 2024-09-06 13:19 | Outpatient (CLI) | payer MEDICARE, SELFPAY ==
[2024-09-09 07:36] LABS: PSA, Total 6.2 ng/mL (0.0-4.0)
== END ==
PROVIDERS: Family Provider Student in an Organized Health Care Education/Training Program; PCP Family Medicine; Referring Provider Urology; Visit Provider Urology
DX: N40.0 Benign prostatic hyperplasia without lower urinary tract symptoms (principal); R97.20 Elevated prostate specific antigen [PSA]; Z80.42 Family history of malignant neoplasm of prostate
CPT/HCPCS: 36415; 84153; 84154